=== PATIENT | female | born 1985 ===

== ENCOUNTER 2021-12-19 15:51 | Outpatient (CLI) | payer OTHER | END 2021-12-19 16:58 | disposition home or self-care (01) | LOC: PRENATAL 15:51 | PROVIDERS: ATTEND Obstetrics & Gynecology Maternal & Fetal Medicine | DX: O35.0XX0 Maternal care for (suspected) central nervous system malformation in fetus, not applicable or unspecified (principal); O35.3XX0 Maternal care for (suspected) damage to fetus from viral disease in mother, not applicable or unspecified; O09.529 Supervision of elderly multigravida, unspecified trimester ==

== ENCOUNTER 2022-03-22 14:50 | Outpatient (CLI) | payer OTHER | END 2022-03-22 17:34 | disposition home or self-care (01) | LOC: PRENATAL 14:50 | PROVIDERS: ATTEND Obstetrics & Gynecology Maternal & Fetal Medicine | DX: O26.849 Uterine size-date discrepancy, unspecified trimester (principal); O09.529 Supervision of elderly multigravida, unspecified trimester; O28.1 Abnormal biochemical finding on antenatal screening of mother; O43.90 Unspecified placental disorder, unspecified trimester; Z3A.33 33 weeks gestation of pregnancy ==